=== PATIENT | male | born 1960 | race Hispanic/Latino ===

== ENCOUNTER 2017-11-17 03:40 | Inpatient (IN) | payer OTHER ==
[~2017-11-17] VITALS: Ht 167.6 cm; Wt 67.0 kg
[2017-11-17] VITALS (10 sets, daily range): BP systolic 76–129; BP diastolic 54–88
[~2017-11-17 03:40] MED LIST: AMBIEN5 MG PO; ATORVASTATIN CA20 MG PO; CLONAZEPAM0.5 MG PO; COREG3.125 M1 PO; DILAUDID2 MG PO; KEFLEX500 MG PO; LO-DOSE ASPIRIN81 M2 PO; LOPRESSOR25 MG PO; NORCO 7.5/321 TABLET PO; PRINIVIL5 MG PO; TYLENOL PM1 CAPLET PO
[2017-11-17] MEDS ORDERED: MOTRIN PM CAPL1 EAC1 PO (07:53)
[2017-11-17 08:17] LABS: CHLORIDE 108 MEQ/L (99-109); GFR ESTIMATE (CALCULATED) > 59 mL/min/ (58.99-99999); GLUCOSE 112 mg/dL (70-99); POTASSIUM 4.1 MEQ/L (3.7-5.4); SODIUM 139 MEQ/L (136-147); UREA NITROGEN (BUN) 27 mg/dL (9-23)
[2017-11-17 08:21] LABS: HEMATOCRIT 48.1 % (38.0-50.0); HEMOGLOBIN 16.2 G/DL (12.5-16.6); MCH 29.6 PG (29.0-34.0); MCHC 33.7 G/DL (30.0-36.0); MCV 87.9 FL (86-99); PLATELET COUNT 197 K/uL (156-360); RBC DIS.WIDTH-CV 13.6 % (11.8-14.6); RBC DIS.WIDTH-SD 43.9 % (39-53); RED BLOOD COUNT 5.47 M/uL (4.00-5.50); WHITE BLOOD COUNT 10.8 K/uL (4.1-10.2)
[2017-11-17 12:10] LABS: TROP-I INTERPRETATION NEGATIVE; TROPONIN-I < 0.01 ng/mL (0.0-0.30)
[2017-11-17] MEDS ORDERED: HYDROCODON-ACE1 EAC7 PO (17:30)
[2017-11-17 19:24] LABS: TROP-I INTERPRETATION NEGATIVE; TROPONIN-I 0.05 ng/mL (0.0-0.30)
[2017-11-18] VITALS (14 sets, daily range): BP systolic 89–145; BP diastolic 56–91
[2017-11-18 01:23] LABS: TROP-I INTERPRETATION NEGATIVE
[2017-11-18 06:37] LABS: TROP-I INTERPRETATION NEGATIVE; TROPONIN-I 0.11 ng/mL (0.0-0.30)
[2017-11-18 12:45] LABS: TROP-I INTERPRETATION NEGATIVE; TROPONIN-I 0.07 ng/mL (0.0-0.30)
== END 2017-11-18 16:00 | disposition home or self-care (01) | DRG 39 ==
LOC: ENRESERV 03:40 → CANRESERV 03:40 → ENRESERV 03:48 → 2SOUTH 07:07 → 4WEST 07:07 → SDC 09:09 → EDSTATUS 13:38 → 2SOUTH 13:39 → ENRESERV 14:12 → 4WEST 16:02 → 2SOUTH 16:04 → 4WEST 11-18 16:00
PROVIDERS: Internal Medicine Cardiovascular Disease; Surgery
DX: I65.21 Occlusion and stenosis of right carotid artery (principal); E78.5 Hyperlipidemia, unspecified; F17.210 Nicotine dependence, cigarettes, uncomplicated; I10 Essential (primary) hypertension; I36.1 Nonrheumatic tricuspid (valve) insufficiency; I70.219 Atherosclerosis of native arteries of extremities with intermittent claudication, unspecified extremity; I25.10 Atherosclerotic heart disease of native coronary artery without angina pectoris; Z60.2 Problems related to living alone; K21.9 Gastro-esophageal reflux disease without esophagitis; Z86.73 Personal history of transient ischemic attack (TIA), and cerebral infarction without residual deficits; Z95.1 Presence of aortocoronary bypass graft; Z79.82 Long term (current) use of aspirin; Z87.442 Personal history of urinary calculi
CPT/HCPCS: 80048; 84484; 85027; 87641; 93005; 93306; C1768; J0131; J0690; J1100; J1170; J1644; J1650; J2250; J2370; J2405; J2720; J2795; J3010; J7050; J7120

== ENCOUNTER → 2017-12-26 | Outpatient (CLI) | payer OTHER ==
[~2017-12-26] MED LIST changes: +HYDROCODON-ACE1 EAC7 PO; +MOTRIN PM CAPL1 EAC1 PO
== END | disposition home or self-care (01) ==
LOC: CDC 15:47
DX: R94.31 Abnormal electrocardiogram [ECG] [EKG] (principal)
CPT/HCPCS: 93000

== ENCOUNTER 2018-01-11 11:09 | Emergency (ER) | payer OTHER ==
[~2018-01-11] VITALS: Ht 167.6 cm; Wt 63.8 kg
[2018-01-11 11:35] LABS: HEMATOCRIT 46.4 % (38.0-50.0); HEMOGLOBIN 15.7 G/DL (12.5-16.6); MCH 30.5 PG (29.0-34.0); MCHC 33.8 G/DL (30.0-36.0); MCV 90.3 FL (86-99); PLATELET COUNT 217 K/uL (156-360); RBC DIS.WIDTH-CV 12.6 % (11.8-14.6); RED BLOOD COUNT 5.14 M/uL (4.00-5.50); WHITE BLOOD COUNT 9.8 K/uL (4.1-10.2)
[2018-01-11 11:42] LABS: ALBUMIN 4.3 g/dL (3.2-4.8)
[2018-01-11 11:43] LABS: CHLORIDE 110 mEq/L (99-109); POTASSIUM 4.1 mEq/L (3.7-5.4); SODIUM 142 mEq/L (136-147)
[2018-01-11 11:45] LABS: GLUCOSE 107 mg/dL (70-99); TOTAL PROTEIN 6.8 g/dL (6.4-8.3)
[2018-01-11 11:47] LABS: TOTAL BILIRUBIN 0.4 mg/dL (0.0-1.0)
[2018-01-11 11:48] LABS: ALKALINE PHOSPHATASE 92 IU/L (3-129)
[2018-01-11 11:49] LABS: CREATININE 0.8 mg/dL (0.6-1.3); GFR ESTIMATE (CALCULATED) > 59 mL/min/ (58.99-99999)
[2018-01-11 11:50] LABS: AST (GOT) 18 IU/L (2-34); UREA NITROGEN (BUN) 22 mg/dL (9-23)
[2018-01-11 11:51] LABS: ALT (GPT) 19 IU/L (3-49)
[2018-01-11 11:55] LABS: TROP-I INTERPRETATION NEGATIVE; TROPONIN-I 0.01 ng/mL (0.0-0.30)
[2018-01-11 14:59] LABS: TROP-I INTERPRETATION NEGATIVE; TROPONIN-I < 0.01 ng/mL (0.0-0.30)
[2018-01-11 16:00] VITALS: BP 145/94
== END 2018-01-11 16:27 | disposition home or self-care (01) ==
LOC: EME 11:09
PROVIDERS: Emergency Medicine Emergency Medical Services
DX: R07.9 Chest pain, unspecified (principal); Z95.1 Presence of aortocoronary bypass graft; I11.0 Hypertensive heart disease with heart failure; I50.9 Heart failure, unspecified; I25.2 Old myocardial infarction; E78.5 Hyperlipidemia, unspecified; K21.9 Gastro-esophageal reflux disease without esophagitis; F41.9 Anxiety disorder, unspecified; F32.9 Major depressive disorder, single episode, unspecified; F17.200 Nicotine dependence, unspecified, uncomplicated; Z86.73 Personal history of transient ischemic attack (TIA), and cerebral infarction without residual deficits; Z87.442 Personal history of urinary calculi; Z79.82 Long term (current) use of aspirin
CPT/HCPCS: 71045; 80053; 84484; 85027; 85379; 93005; 99281; 99285